=== PATIENT | male | born 1970 | race Caucasian/White ===

== ENCOUNTER 2017-04-22 08:00 | Emergency (ER) | payer OTHER ==
[2017-04-22 08:09] VITALS: BP 120/77
--- NOTE | 2017-04-22 08:33 | ERNOTE ---
ENT HPI Presenting Symptoms: other - Pt presents with left ear pain and swollen lymph nodes in the neck Time Seen by Provider: 04/22/17 08:18 Source: patient Exam Limitations: no limitations - Immun/Allergies/Home Medications Immunizations: IMMUNIZATION HX Immunizations Up to Date Yes History of Influenza Vaccine No Hx Pneumococcal Vaccination No Allergies/Adverse Reactions: Allergies Allergy/AdvReac Type Severity Reaction Status Date / Time No Known Allergies Allergy Verified 04/22/17 08:09 Home Medications: HOME MEDICATIONS Doxycycline Monohydrate 100 mg PO BID #20 tablet 04/22/17 [Last Taken Unknown] predniSONE [Deltasone] 20 mg PO BID #10 tablet 04/22/17 [Last Taken Unknown] - History of Present Illness Narrative: Patient comes in with left ear pain, appearing somewhat diminished on the left and tender anterior cervical lymph nodes primarily on the left. Onset of symptoms was approximately week ago and are moderate in intensity. Severity: Present: moderate ENT Location: Present: ear (L) Prearrival Treatment: Present: no prearrival treatment Modifying Factors - Improves: Reports: nothing Modifying Factors - Worsens: Reports: nothing Associated Symptoms - ENT: Reports: denies symptoms Review of Systems - Review of Systems Constitutional: Present: See HPI EYE: Present: no symptoms reported ENT: Present: ear pain Respiratory: Present: no symptoms reported Cardiology: Present: no symptoms reported Gastrointestinal/Abdominal: Present: no symptoms reported Genitourinary: Present: no symptoms reported Musculoskeletal: Present: no symptoms reported Skin: Present: no symptoms reported Neurological: Present: no symptoms reported Endocrine: Present: no symptoms reported Hematologic/Lymphatic: Present: swollen glands Psych: Present: no symptoms reported - Patient's Past Medical History Patient History - Medical: No pertinent hx Patient History - Cardiac/Respiratory: TIA, Other Patient History - Cancer: No Hx of Cancer Patient History - Surgical Procedures: Other Patient History - Other: None - Social History Living Situations: significant other Abuse History: No History of abuse Psych History: No pertinent hx Smoking Status: Current every day smoker Have you smoked in the past 12 months: Yes Do you dip or chew tobacco: No Alcohol Use: none Drug Use: none - Immunizations Immunizations Up to Date: Yes Hx Pneumococcal Vaccination: No History of Influenza Vaccine: No Physical Exam - Physical Exam General Appearance: Present: wd/wn, alert, moderate distress Eye Exam: Normal inspection: bilateral, PERRL: bilateral Ears, Nose, Throat: Present: normal ENT inspection, abnormal TM (L) - patient presents with left serous otitis media and left anterior cervical lymph nodes greater than right however present bilaterally Neck: Present: lymphadenopathy (R), lymphadenopathy (L) Respiratory: Present: no respiratory distress, normal breath sounds, no accessory muscle use, chest nontender, lungs clear Cardiovascular/Chest: Present: regular rate, rhythm, no murmur, normal peripheral pulses Gastrointestinal/Abdominal: Present: normal bowel sounds, nontender, nondistended, soft, no organomegaly Rectal Exam: Present: deferred Back Exam: Present: normal inspection, normal range of motion Extremity Exam: Present: normal inspection, non-tender, no edema, normal range of motion Neurological Exam: Present: alert, oriented, normal mood/affect Skin Exam: Present: normal color, warm/dry Lymphatic Exam: Present: no adenopathy ED Progress - Vital Signs Patient's Vital Signs:: I have reviewed the patient's vital signs. Vital Signs: Vital Signs 04/22/17 08:04 Temperature 36.1 C L Pulse Rate 71 Respiratory 14 Rate Blood Pressure 120/77 O2 Sat by Pulse 98 Oximetry - Progress/Reassessment Chief Complaint: Earache Plan - Plan Plan: As the patient is a smoker patient will be started on doxycycline and will also give him a five-day course of prednisone. He was counseled to either follow up or find a family physician for ongoing care. Departure Clinical Impression: Lymphadenitis Otitis media Qualifiers: Otitis media type: serous Chronicity: acute Laterality: bilateral Recurrence: not specified as recurrent Qualified Code(s): H65.03 - Acute serous otitis media , bilateral - Departure Disposition: Home self-care Condition: Good Instructions: Otitis Media, Adult, [id number], Lymphadenopathy Prescriptions: Doxycycline Monohydrate 100 mg PO BID #20 tablet predniSONE [Deltasone] 20 mg PO BID #10 tablet
== END 2017-04-22 08:37 | disposition home or self-care (01) ==
LOC: ER 08:00
DX: I88.9 Nonspecific lymphadenitis, unspecified (principal); H65.03 Acute serous otitis media, bilateral